=== PATIENT | female | born 1935 | race Caucasian/White ===

== ENCOUNTER 2019-10-27 16:04 | Day surgery (SDC) | payer MEDICARE, BC ==
[~2019-10-27 16:04] MED LIST: DIPHENHYDRAMINE HCL 50 MG/ML VIAL ONE; FENTANYL CITRATE INJ/PF 100 MCG/2 ML AMPUL ONE; ONDANSETRON HCL INJ/PF 4 MG/2 ML SDV ONE
[2019-10-27] MEDS ORDERED: MIDAZOLAM 2 MG/2 ML INJ ONE (16:05)
[2019-10-27] MEDS ORDERED: NALOXONE HCL INJ/PF 0.4 MG/1 ML SDV ONE (16:05)
[2019-10-27] MEDS ORDERED: EPINEPHRINE INJ 1 MG/10 ML DISP.SYRIN ONE (16:05)
[2019-10-27] MEDS ORDERED: GLUCAGON,HUMAN RECOMB 1 MG INJ ONE (16:05)
[2019-10-27] MEDS ORDERED: FLUMAZENIL INJ 0.5 MG/5 ML VIAL ONE (16:05)
--- NOTE | 2019-10-27 18:12 | Operative Report ---
Operative Report DATE OF SURGERY: 10/27/19 Operative Report: Pre-op diagnosis: Epigastric pain Post-op diagnosis: Normal EGD Surgery: Esophagogastroduodenoscopy with biopsy Medications: Versed 1mg Fentanyl 25 Mcg IV push Tissue removed: Antral biopsy for pathology Procedure: After informed consent obtained from patient, the throat was sprayed with Hurricane and conscious sedation was achieved. The upper endoscope was inserted into the esophagus under direct vision and advanced into the stomach. The duodenum was entered and examined to the second part. Endoscope was then slowly pulled out of the patient as the mucosa was examined into details. Patient tolerated procedure well. Findings Esophagus: Normal Antrum: Normal Body: Normal Fundus: Normal Duodenum first part: Normal Duodenum second part: Normal Plan: Await pathology. Continue omeprazole but reduce dose to 20 mg daily OPERATION: .
[2019-10-27 18:57] VITALS: BP 132/86
== END 2019-10-27 19:00 | disposition home or self-care (01) ==
LOC: END 16:04
PROVIDERS: ATTEND Internal Medicine Gastroenterology
DX: K31.9 Disease of stomach and duodenum, unspecified (principal); D53.9 Nutritional anemia, unspecified; Z79.51 Long term (current) use of inhaled steroids; Z79.84 Long term (current) use of oral hypoglycemic drugs; I10 Essential (primary) hypertension; K21.9 Gastro-esophageal reflux disease without esophagitis; E11.9 Type 2 diabetes mellitus without complications; J44.9 Chronic obstructive pulmonary disease, unspecified; Z85.3 Personal history of malignant neoplasm of breast; Z88.0 Allergy status to penicillin; E66.9 Obesity, unspecified; Z68.34 Body mass index [BMI] 34.0-34.9, adult
CPT/HCPCS: 43239; 82962; 88342 ×2; 88305 ×2; J2250; J3010; J0171; J1200; J1610; J2310; J2405; J3490

== ENCOUNTER → 2020-06-16 | Outpatient (CLI) | payer MEDICARE, BC ==
--- NOTE | 2020-06-16 12:42 | RADIOLOGY REPORT (SQ) ---
EXAM DESCRIPTION: NM GASTRIC EMPTYING STUDY IMAGES COMPLETED DATE/TIME: 06/16/2020 12:17 pm REASON FOR STUDY: R68.81 EARLY SATIETY R68.81 EARLY SATIETY COMPARISON: None. RADIONUCLIDE AND DOSE: 2 millicuries Tc-99m Sulfur Colloid. Egg salad sandwich The route of agent administration: Oral. TECHNIQUE: 1 minute serial static imaging performed at time of meal, 1 hour, 2 hours, 3 hours, and 4 hours as needed. Once stomach reaches 90% emptying, the test is complete. Image intensity values pl otted with respect to time with linear regression algorithm. LIMITATIONS: None. FINDINGS: Patient was observed for 4 hours. Immediate post meal serves as baseline. Gastric emptying at 30 minutes was 11.9%. Gastric emptying at 60 minutes was 23.9% Gastric emptying at 90 minutes was 35.8%. Gastric emptying at 120 minutes was 47.8%. Gastric emptying at 240 minutes was 95.6%. Normal values: 60 minutes: 30-90% retained. If less than 30%, abnormally rapid emptying. If greater than 90%, delaye d gastric emptying. 120 minutes: <60% retained. If greater than 60%, delayed gastric emptying. 240 minutes: <10% retained. If greater than 10%, delayed gastric emptying. IMPRESSION: NORMAL GASTRIC EMPTYING. TECHNICAL DOCUMENTATION: JOB ID: [id number] 2010 [employer]- All Rights Reserved rev-02/07 Reading location - IP/workstation name: [email or web address]
== END ==
LOC: RAD 06:54
PROVIDERS: ATTEND Internal Medicine Gastroenterology
DX: R68.81 Early satiety (principal)
CPT/HCPCS: 78264; A9541

== ENCOUNTER 2020-06-21 20:34 | Emergency (ER) | payer MEDICARE, BC ==
[2020-06-21] MEDS ORDERED: NORMAL SALINE 1000 ML 1,000 ML IV ONE (21:00)
--- NOTE | 2020-06-21 21:06 | ER Document Report ---
ED Medical Screen (RME) - General Chief Complaint: Weakness Stated Complaint: GENERAL WEAKNESS Time Seen by Provider: 06/21/20 20:45 Primary Care Provider: MARTHA BLEVINS MD [Primary Care Provider] - Follow up as needed TRAVEL OUTSIDE OF THE [place] IN LAST 30 DAYS: No - HPI Notes: 06/21/20 21:01 84-year-old female presents emergency room today with her daughter for complaints of loss of appetite and losing 40 pounds in the last 2 months. Patient was initially in a long-term facility because she had broken her hip which the daughter then removed her from the facility and brought her back to her home. Daughter noticed that patient was not eating very much so, daughter brought patient to [facility] emergency room for the same complaint on May 27, which includeda CT of her head as well as of her abdomen and pelvis, a complete set of labs, which yielded no results as to why she has lost weight and not interested in eating. She did follow-up with a laboratory specialist, Dr. Blevins, who thought maybe she has gastroparesis after doing a stomach emptying test, she is scheduled for CTA of her abdomen tomorrow. she was found to have dementia, she did consult with the neuropsychiatrist at [facility] and it is a working diagnosis. Daughter is very concerned that nobody can figure out what is going on with her mother as she is losing weight, not eating much. Denies an y fevers chills, chest pain, shortness of breath, nausea vomiting diarrhea abdominal pain. Last bowel movement was today. Denies any melena. I have greeted and performed a rapid initial assessment of this patient. A comprehensive ED assessment and evaluation of the patient, analysis of test results and completion of the medical decision making process will be conducted by additional ED providers. PHYSICAL EXAMINATION: GENERAL: Chronically ill malnourished and in no acute distress. HEAD: Atraumatic, normocephalic. EYES: Pupils equal round extraocular movements intact, conjunctiva are normal. NECK: Normal range of motion CV: s1, s2 regular LUNGS: No respiratory distress abd: No abdominal pain on palpation Musculoskeletal: Normal range of motion NEUROLOGICAL: Normal speech, normal gait. Patient able to say the month the season unable to say the president and where she was SKIN: Warm, Dry, normal turgor, no rashes or lesions noted. - Related Data Allergies/Adverse Reactions: Penicillins Allergy (Verified 10/26/19 12:47) Swelling of hands and/or feet Past Medical History - Social History Chew tobacco use (# tins/day): No Frequency of alcohol use: None Drug Abuse: None - Past Medical History Cardiac Medical History: Reports: Hx Hypertension Denies: Hx Coronary Artery Disease, Hx Heart Attack Pulmonary Medical History: Reports: Hx Bronchitis - TWICE A YEAR, Hx COPD Denies: Hx Asthma, Hx Pneumonia Neurological Medical History: Denies: Hx Cerebrovascular Accident, Hx Seizures Musculoskeltal Medical History: Denies Hx Arthritis - Immunizations Hx Diphtheria, Pertussis, Tetanus Vaccination: No Physical Exam - Vital signs Vitals: Temp Pulse Resp BP Pulse Ox 97.9 F 91 18 104/70 97 06/21/20 20:41 06/21/20 20:41 06/21/20 20:41 06/21/20 20:41 06/21/20 20:41 Course - Vital Signs Vital signs: Temp Pulse Resp BP Pulse Ox 97.9 F 91 18 104/70 97 06/21/20 20:41 06/21/20 20:41 06/21/20 20:41 06/21/20 20:41 06/21/20 20:41 Doctor's Discharge - Discharge Referrals: MARTHA BLEVINS MD [Primary Care Provider] - Follow up as needed
[2020-06-21 21:24] LABS: ABSOLUTE EOSINOPHILS # (AUTO) 0.1 10^3/uL (0.0-0.6); ABSOLUTE LYMPHOCYTES (AUTO) 1.7 10^3/uL (0.5-4.7); ABSOLUTE MONOCYTES (AUTO) 0.4 10^3/uL (0.1-1.4); ABSOLUTE NEUT (AUTO) 3.9 10^3/uL (1.7-8.2); BASOPHILS % (AUTO) 0.3 % (0-2); EOSINOPHILS % (AUTO) 1.4 % (0-6); HEMATOCRIT 36.3 % (36.0-47.0); HEMOGLOBIN 12.9 g/dL (12.0-15.5); LYMPHOCYTES % (AUTO) 27.8 % (13-45); MEAN CORPUSCULAR HEMOGLOBIN 31.4 pg (27.0-33.4); MEAN CORPUSCULAR HGB CONC 35.6 g/dL (32.0-36.0); MEAN CORPUSCULAR VOLUME 88 fl (80-97); PLATELET COUNT 315 10^3/uL (150-450); RED BLOOD COUNT 4.12 10^6/uL (3.72-5.28); RED CELL DISTRIBUTION WIDTH 14.2 % (11.5-14.0); SEGMENTED NEUTROPHILS % (AUTO) 64.5 % (42-78); TOTAL CELLS COUNTED % (AUTO) 100 %; WHITE BLOOD COUNT 6.1 10^3/uL (4.0-10.5)
[2020-06-21 21:40] LABS: ALBUMIN 3.5 g/dL (3.5-5.0); ALKALINE PHOSPHATASE 98 U/L (38-126); ANION GAP 15 (5-19); ASPARTATE AMINO TRANSFERASE 58 U/L (14-36); BILIRUBIN,DIRECT 0.4 mg/dL (0.0-0.4); BILIRUBIN,TOTAL 0.9 mg/dL (0.2-1.3); BLOOD UREA NITROGEN 35 mg/dL (7-20); CALCIUM 9.3 mg/dL (8.4-10.2); CARBON DIOXIDE 23 mmol/L (22-30); CHLORIDE 92 mmol/L (98-107); GLUCOSE 103 mg/dL (75-110); POTASSIUM 3.8 mmol/L (3.6-5.0); TOTAL PROTEIN 6.5 g/dL (6.3-8.2)
--- NOTE | 2020-06-21 22:01 | RADIOLOGY REPORT (SQ) ---
XR CHEST 2 VIEWS HISTORY: Loss of appetite over 1 month, weight loss . COMPARISON: None. FINDINGS: The heart size is within normal limits. There is no pulmonary vascular congestion. No consolidation, pleural effusion, or pneumothorax is seen. No acute bony findings are seen. IMPRESSION: No evidence of acute cardiopulmonary disease.
--- NOTE | 2020-06-21 23:51 | ER Document Report ---
ED General - General Chief Complaint: Weakness Stated Complaint: GENERAL WEAKNESS Time Seen by Provider: 06/21/20 20:45 Primary Care Provider: MARTHA BLEVINS MD [Primary Care Provider] - Follow up as needed TRAVEL OUTSIDE OF THE [place] IN LAST 30 DAYS: No - HPI Notes: 84-year-old female presents with loss of appetite. Information is provided by patient's daughter. Patient's daughter states that for the last 7 weeks patient has had a loss of appetite, reportedly will states that nothing tastes good, 40 pound weight loss. However over the past 4 days patient's oral intake has significantly reduced, eating about 2 tablespoons of oatmeal per day. She is at a assisted living facility, staff reported that they are forcing to feed her. Daughter notes that patient has had quite the decline in the past 2 months. She was seen in [place] on May 27 for the symptoms. She had a negative brain CT and a negative CT abdomen. Lab work without major abnormalities as well. It was reference that she might have a dementia. Patient was seen by neuropsych and dementia mild versus moderate is the working diagnosis. Patient has also seen Dr. Blevins of GI. She had a gastric emptying study and actually has a CT abdomen tomorrow. Patient is here tonight per the request of the care facility, there was concern that she was dehydrated. Daughter states that is very stressful seeing her mother essentially waste away. Daughter states that mother will tell her that she no longer wants to come to the emergency department. Patient currently denies complaints, states that she would like to go home. - Related Data Allergies/Adverse Reactions: Penicillins Allergy (Verified 10/26/19 12:47) Swelling of hands and/or feet Past Medical History - General Information source: Relative - Social History Smoking Status: Never Smoker Chew tobacco use (# tins/day): No Frequency of alcohol use: None Drug Abuse: None Family History: Other - Dementia - Past Medical History Cardiac Medical History: Reports: Hx Hypertension Denies: Hx Coronary Artery Disease, Hx Heart Attack Pulmonary Medical History: Reports: Hx Bronchitis - TWICE A YEAR, Hx COPD Denies: Hx Asthma, Hx Pneumonia Neurological Medical History: Denies: Hx Cerebrovascular Accident, Hx Seizures Musculoskeletal Medical History: Denies Hx Arthritis - Immunizations Hx Diphtheria, Pertussis, Tetanus Vaccination: No Review of Systems - Review of Systems -: Yes ROS unobtainable due to patient's medical condition Physical Exam - Vital signs Vitals: Temp Pulse Resp BP Pulse Ox 97.9 F 91 18 104/70 97 06/21/20 20:41 06/21/20 20:41 06/21/20 20:41 06/21/20 20:41 06/21/20 20:41 - General General appearance: Alert In distress: None - HEENT Head: Normocephalic, Atraumatic Extraocular movements intact: Yes Pupils: PERRL - Respiratory Chest status: Nontender Breath sounds: Normal - Cardiovascular Rhythm: Regular Heart sounds: Normal auscultation Normal capillary refill: Yes - Abdominal Tenderness: Nontender - Extremities General upper extremity: Normal inspection General lower extremity: Normal inspection. No: Edema - Neurological Notes: Patient is oriented to self and daughter. She speaks in clear sentences. Cranial nerves II through XII grossly intact. Strength symmetric in upper extremities, strength symmetric between lower extremities. - Psychological Associated symptoms: Other - Pleasantly demented - Skin Skin Temperature: Warm Course - Re-evaluation Re-evalutation: 84-year-old female with essentially decline in her health for the past 2 months. Patient has had loss of appetite, reportedly will state that nothing tastes good, has had 40 pound weight loss and very poor oral intake. Here tonight due to concerns from dehydration from the assisted living facility that patient resides at. I had lengthy discussion with patient's daughter about pathogenesis of dementia. Daughter is understandably concerned about her mother's decline a nd being unsure what to do. She has a GI appointment tomorrow for a CT abdomen. Daughter has expressed that she would never want her mother to have a PEG tube. I discussed with daughter to bring up use of appetite stimulants with GI tomorrow or PCP. Objectively, patient is awake and alert, she is pleasantly demented. She has no focal neuro deficits. Lungs are clear, heart regular rate and rhythm, abdomen is soft. I feel that a fluid bolus is reasonable given her poor oral intake. She does have some mild hypo-natremia/hypochloremia. Her creatinine is 1.5, we do not have a baseline, however paperwork from [facility] shows that her creatinine was 1.15 on May 27, therefore this is not an MIGUELINA. Patient stating multiple times that she wishes to go home. 06/22/20 00:46 Per nursing, patient became upset during IV placement. Patient's daughter has now refused IV and wishes for her mother to go back to the residential. Patient stable at time of discharge. - Vital Signs Vital signs: Temp Pulse Resp BP Pulse Ox 97.7 F 84 18 133/66 H 100 06/22/20 00:44 06/22/20 00:44 06/22/20 00:44 06/22/20 00:44 06/22/20 00:44 - Laboratory Result Diagrams: 06/21/20 21:08 06/21/20 21:08 Laboratory results interpreted by me: 06/21/20 06/21/20 21:08 21:08 RDW 14.2 H Sodium 130.0 L Chloride 92 L BUN 35 H Creatinine 1.34 H Est GFR ( Amer) 45 L Est GFR (MDRD) Non-Af 38 L AST 58 H - Diagnostic Test Radiology reviewed: Image reviewed, Reports reviewed Discharge - Discharge Clinical Impression: Loss of appetite Condition: Stable Disposition: HOME, SELF-CARE Additional Instructions: Please follow-up with GI tomorrow as planned. You can discuss appetite stimulants with GI or the primary care doctor. Return to the emergency department for any concerning worsening symptoms. Referrals: MARTHA BLEVINS MD [Primary Care Provider] - Follow up as needed
[2020-06-22] MEDS ORDERED: NORMAL SALINE 500 ML IV ONE (00:27)
[2020-06-22 00:47] VITALS: BP 133/66
== END 2020-06-22 01:04 | disposition home or self-care (01) ==
LOC: ER 20:34
DX: R63.0 Anorexia (principal); R63.4 Abnormal weight loss; I10 Essential (primary) hypertension; E87.1 Hypo-osmolality and hyponatremia; E87.8 Other disorders of electrolyte and fluid balance, not elsewhere classified; Z88.0 Allergy status to penicillin
CPT/HCPCS: 36415; 71046; 80053; 85025; 99284

== ENCOUNTER → 2020-06-22 | Outpatient (CLI) | payer MEDICARE, BC ==
--- NOTE | 2020-06-22 16:25 | RADIOLOGY REPORT (SQ) ---
EXAM DESCRIPTION: CTA ABDOMEN IMAGES COMPLETED DATE/TIME: 06/22/2020 3:57 pm REASON FOR STUDY: R10.84 GENERALIZED ABDOMINAL PAIN R10.84 GENERALIZED ABDOMINAL PAIN COMPARISON: None. TECHNIQUE: CT scan of the abdominal aorta extending to the iliac bifurcation performed with intraven ous contrast using helical scanning technique with dynamic intravenous contrast injection. Images rev iewed with lung, soft tissue, and bone windows. Reconstructed coronal and sagittal MPR images reviewe d. All images stored on PACS. Advanced 3D imaging as volume rendering, MIPS, SSD performed? yes All CT scanners at this facility use dose modulation, iterative reconstruction, and/or weight based d osing when appropriate to reduce radiation dose to as low as reasonably achievable (ALARA). [facility]: Dose Right [facility]: CareDose [facility]: Dose Right [facility]: Teradose 4D [facility]: My 1% CONTRAST TYPE AND DOSE: contrast/concentration: Isovue 350.00 mmol/ml; Total Contrast Delivered: 80. 0 ml; Total Saline Delivered: 65.0 ml RENAL FUNCTION: BUN 35 creatinine 1.34. LIMITATIONS: Diffuse vascular calcifications. FINDINGS: NON-CONTRASTED IMAGING: Post contrast images only. POST-CONTRAST IMAGING: AORTA AND VESSELS: Diffuse heavy atherosclerotic calcifications. No aneurysm. Less than 50% stenosi s proximal celiac artery. 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 ESTELA is patent. No significan t stenosis in the renal arteries. LUNG BASES: No significant findings. No nodules or infiltrates. LIVER: Normal size. Fatty change. O masses or dilated ducts. SPLEEN: Normal size. No focal lesions. PANCREAS: No masses. No significant calcifications. No adjacent inflammation or peripancreatic fluid collections. Pancreatic duct not dilated. GALLBLADDER: Surgically absent. ADRENAL GLANDS: No significant masses or asymmetry. RIGHT KIDNEY AND URETER: No mass, calculi or urinary tract obstruction. LEFT KIDNEY AND URETER: No mass, calculi or urinary tract obstruction. RETROPERITONEUM: No retroperitoneal adenopathy, hemorrhage or masses. BOWEL AND PERITONEAL CAVITY: Diverticulosis. No masses or inflammatory changes. No free fluid or per itoneal masses. APPENDIX: Not visualized. ABDOMINAL WALL: No masses. No hernias. BONY STRUCTURES: Nothing acute. 3-D IMAGING: Confirms the above findings. OTHER: No other significant finding. 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 TECHNICAL DOCUMENTATION: JOB ID: [id number] Quality ID # [id number]: Final reports with documentation of one or more dose reduction techniques (e.g., Au tomated exposure control, adjustment of the mA and/or kV according to patient size, use of iterative reconstruction technique) 2010 [employer]- All Rights Reserved Reading location - IP[facility]workstation name: [email or web address]
== END ==
LOC: RAD 15:18
PROVIDERS: ATTEND Internal Medicine Gastroenterology
DX: K57.90 Diverticulosis of intestine, part unspecified, without perforation or abscess without bleeding (principal); R10.84 Generalized abdominal pain
CPT/HCPCS: 74175